=== PATIENT | male | born 1990 | race Hispanic/Latino ===

== ENCOUNTER 2018-03-24 03:56 | Emergency (ER) | payer SELFPAY ==
[2018-03-24 03:57] VITALS: BMI 21.5
[2018-03-24 04:09] VITALS: BP 146/84; RESP 18; TEMP 98.3; O2SAT 99
--- NOTE | 2018-03-24 04:32 | ED PDOC ---
HPI: Psych/Substance Abuse Time Seen by Provider: 03/24/18 04:04 Chief Complaint (Nursing): Alcohol Ingestion Chief Complaint (Provider): Alcohol abuse - Denies complaint ED Caveat: Acuity of Condition History Per: Patient History/Exam Limitations: no limitations Onset/Duration Of Symptoms: Hrs Current Symptoms Are (Timing): Still Present Modifying Factor(s): Alcohol Additional Complaint(s): Pt brought in by EMS for evaluation of ETOH. PT reports drinking only beer tonight. PT ambulates with steady gait on arrival. Past Medical History Reviewed: Historical Data, Nursing Documentation, Vital Signs Vital Signs: Last Vital Signs Temp 98.3 F 03/24/18 04:07 Pulse 112 H 03/24/18 04:07 Resp 18 03/24/18 04:07 BP 146/84 03/24/18 04:07 Pulse Ox 99 03/24/18 04:07 - Medical History PMH: No Chronic Diseases - Surgical History Surgical History: No Surg Hx - Family History Family History: States: No Known Family Hx - Living Arrangements Living Arrangements: With Family - Social History Current smoker - smoking cessation education provided: No - Allergies Allergies/Adverse Reactions: Allergies Allergy/AdvReac Type Severity Reaction Status Date / Time No Known Allergies Allergy Verified 03/24/18 04:05 Review of Systems ROS Statement: Except As Marked, All Systems Reviewed And Found Negative Constitutional: Negative for: Fever, Chills Cardiovascular: Negative for: Chest Pain, Palpitations Respiratory: Negative for: Cough Gastrointestinal: Negative for: Nausea, Vomiting, Abdominal Pain Genitourinary Male: Negative for: Dysuria Physical Exam - Reviewed Nursing Documentation Reviewed: Yes Vital Signs Reviewed: Yes - Physical Exam Appears: Positive for: Well, Non-toxic, No Acute Distress Head Exam: Positive for: ATRAUMATIC, NORMAL INSPECTION, NORMOCEPHALIC Skin: Positive for: Normal Color, Warm, DRY Eye Exam: Positive for: Normal appearance, EOMI, PERRL ENT: Positive for: Normal ENT Inspection Neck: Positive for: Normal, Painless ROM Cardiovascular/Chest: Positive for: Regular Rate, Rhythm Respiratory: Positive for: CNT, Normal Breath Sounds Back: Positive for: Normal Inspection Extremity: Positive for: Normal ROM Neurologic/Psych: Positive for: Alert, Oriented - ECG O2 Sat by Pulse Oximetry: 99 Disposition - Clinical Impression Clinical Impression: Alcohol abuse - Patient ED Disposition Is Patient to be Admitted: No Counseled Patient/Family Regarding: Diagnosis, Need For Followup - Disposition Disposition: Routine/Home Disposition Time: 04:24 Condition: GOOD Instructions: Effects of Alcohol on Your Health Forms: [employer] (Maltese)
[2018-03-24 04:40] VITALS: PULSE 110
== END 2018-03-24 04:38 | disposition home or self-care (01) ==
LOC: H.ER 03:56
DX: F10.10 Alcohol abuse, uncomplicated (principal)